=== PATIENT | female | born 1980 | race Caucasian/White ===

== ENCOUNTER 2021-07-03 12:03 | Emergency (ER) | payer OTHER ==
[2021-07-03 12:13] VITALS: BP 102/73; PULSE 67; TEMP 97; BMI 24.9
[2021-07-03] MEDS ORDERED: KETOROLAC TROMETHAMINE 30 MG/1 ML VIAL IM ONE (13:42)
[2021-07-03] MEDS ORDERED: diazePAM 5 MG TABLET PO ONE (13:42)
[2021-07-03] MEDS ORDERED: KETOROLAC TROMETHAMINE 30 MG/1 ML VIAL ONE (13:55)
[2021-07-03] MEDS ORDERED: diazePAM 5 MG TABLET ONE (13:56)
== END 2021-07-03 14:05 | disposition home or self-care (01) ==
LOC: JERFT 12:03
PROC: 3E023GC Introduction of Other Therapeutic Substance into Muscle, Percutaneous Approach (ICD-10-PCS; principal; 2021-07-03)
DX: M54.31 Sciatica, right side (principal)
CPT/HCPCS: 99284-25